=== PATIENT | male | born 1970 | race Caucasian/White ===

== ENCOUNTER 2022-09-11 08:02 | Day surgery (SDC) | payer OTHER ==
[2022-09-08 16:11] VITALS: BMI 25.7
[2022-09-11 09:05] VITALS: RESP 16
[2022-09-11 09:28] VITALS: BP 118/67; PULSE 70; TEMP 98
== END 2022-09-11 09:36 | disposition home or self-care (01) ==
LOC: FASU-ENDO 08:02
PROVIDERS: ATTEND Internal Medicine Gastroenterology
PROC: 0DJD8ZZ Inspection of Lower Intestinal Tract, Via Natural or Artificial Opening Endoscopic (ICD-10-PCS; principal; 2022-09-11 08:47)
DX: Z12.11 Encounter for screening for malignant neoplasm of colon (principal); Z80.0 Family history of malignant neoplasm of digestive organs